=== PATIENT | male | born 1940 | race Caucasian/White ===

== ENCOUNTER 2017-03-14 04:44 | Day surgery (SDC) | payer BC ==
[~2017-03-14 04:44] MED LIST: ACET500CAP PO; ASAB PO; CARD120 PO; CELEXA20 PO; HYDROCHLOROT25 MG PO; LOPID6 PO; LOTE40 PO; NORCO1 TA1 PO; ZESTRIL30 MG PO; [UNRECOGNIZED DRUG - MIXTURE] NAS
== END 2017-03-14 08:56 | disposition home or self-care (01) ==
LOC: SDC 04:44
PROVIDERS: Orthopaedic Surgery
PROC: 3E0S3BZ Introduction of Anesthetic Agent into Epidural Space, Percutaneous Approach (ICD-10-PCS; 2017-03-14)
PROC: 3E0S33Z Introduction of Anti-inflammatory into Epidural Space, Percutaneous Approach (ICD-10-PCS; principal; 2017-03-14 07:15)
DX: M54.16 Radiculopathy, lumbar region (principal); M48.06 Spinal stenosis, lumbar region; M54.5 Low back pain; Z98.41 Cataract extraction status, right eye; Z98.42 Cataract extraction status, left eye; Z98.890 Other specified postprocedural states; F41.9 Anxiety disorder, unspecified; Z96.1 Presence of intraocular lens; I10 Essential (primary) hypertension; M19.90 Unspecified osteoarthritis, unspecified site; R32 Unspecified urinary incontinence; Z79.899 Other long term (current) drug therapy; Z79.891 Long term (current) use of opiate analgesic
CPT/HCPCS: J1040; J2250; J3010; Q9967